=== PATIENT | female | born 1935 | race Caucasian/White ===

== ENCOUNTER → 2019-06-03 | Outpatient (CLI) | payer MEDICARE, BC ==
[2019-06-03 11:07] LABS: BACTERIA,URINE LARGE /HPF; BILIRUBIN,URINE NEGATIVE (NEGATIVE); CLARITY,URINE CLOUDY; COLOR,URINE YELLOW; GLUCOSE, URINE (UA) NEGATIVE (NEGATIVE); KETONES,URINE NEGATIVE (NEGATIVE); LEUKOCYTE ESTERASE ,URINE 2+ (NEGATIVE); NITRITE,URINE NEGATIVE (NEGATIVE); PROTEIN,URINE NEGATIVE (NEGATIVE); UROBILINOGEN,URINE 0.2 MG/DL (NORMAL); WBC,URINE >100 /HPF
[2019-06-03 11:08] LABS: AMORPHOUS SEDIMENT,UR LARGE AMOR URATES /LPF; CALCIUM OXALATE CRYSTALS,UR FEW /LPF
== END ==
LOC: LAB FS 09:20
PROVIDERS: ATTEND Family Medicine
DX: N39.0 Urinary tract infection, site not specified (principal)
CPT/HCPCS: 81000; 87077; 87088

== ENCOUNTER 2020-05-11 16:27 | Emergency (ER) | payer MEDICARE ==
--- NOTE | 2020-05-11 16:35 | ED Lower Extremity ---
General Chief Complaint: Trauma-Non Activation Stated Complaint: FALL Source: patient, EMS Exam Limitations: other (dementia) History of Present Illness Date Seen by Provider: May 11, 2020 Time Seen by Provider: 16:33 Initial Comments 84-year-old female brought in for evaluation following an episode in which she slid out of her wheelchair. Patient initially was complaining of buttock pain and hip pain and left arm pain. Upon arrival to the ER she is not complaining of any pain. Patient did not hit her head. She has no acute mental status changes she has no other symptoms. Allergies and Home Medications Patient Home Medication List Home Medication List Reviewed: Yes Review of Systems Constitutional: no symptoms reported EENTM: no symptoms reported Respiratory: no symptoms reported Cardiovascular: no symptoms reported Gastrointestinal: no symptoms reported Genitourinary: no symptoms reported Musculoskeletal: see HPI Skin: no symptoms reported Psychiatric/Neurological: No Symptoms Reported Past Akmhrou-Nruqwr-Oqvbwa Hx Past Med/Social Hx: Reviewed Nursing Past Med/Soc Hx Physical Exam Vital Signs Vital Signs - First Documented 05/11/20 16:34 Temp 36.8 Pulse 56 Resp 16 B/P (MAP) 143/64 (90) Pulse Ox 94 O2 Delivery Room Air Capillary Refill : Height, Weight, BMI Height: '" Weight: lbs. oz. kg; BMI Method: General Appearance: WD/WN, no apparent distress HEENT: PERRL/EOMI Neck: non-tender, full range of motion Cardiovascular: normal peripheral pulses, regular rate, rhythm Respiratory: lungs clear, normal breath sounds Gastrointestinal: non tender, soft Hips: bilateral hip non-tender Legs: bilateral leg non-tender Knees: bilateral knee non-tender Ankles: bilateral ankle non-tender Neurologic/Psychiatric: alert, other (baseline mood and affect, pleasant) Skin: normal color, warm/dry Progress/Results/Core Measures Results/Orders My Orders Orders - KERR,BILL L DO Pelvis/Noemi Hips 2 View (05/11/20 16:35) Vital Signs/I&O 05/11/20 16:34 Temp 36.8 Pulse 56 Resp 16 B/P (MAP) 143/64 (90) Pulse Ox 94 O2 Delivery Room Air Diagnostic Imaging Diagonstic Imaging: Xray Plain Films/CT/US/NM/MRI: pelvis Comments [facility]. [place], [place] NAME: WAI GARCIA [facility] REC#: [id number] PT STATUS: REG ER : 1935 PHYSICIAN: BILL KERR DO ADMIT DATE: 05/11/20/ER FS Signed Date of Exam:05/11/20 PELVIS/NOEMI HIPS 2 VIEW CLINICAL HISTORY: Fall. Bilateral hip pain. COMPARISON: None. TECHNIQUE: Five views of the pelvis and bilateral hips. FINDINGS: There is no acute fracture or dislocation of the pelvis and bilateral hips. Alignment is anatomic. Degenerative changes are noted in the bilateral hips with marginal osteophytes and joint space narrowing, left greater than right. The bilateral SI joints demonstrate normal alignment. The pubic symphysis is intact. IMPRESSION: No acute displaced fracture in the pelvis and bilateral hips. Reviewed: Reviewed by Me, Reviewed/Discussed Departure Impression Primary Impression: Fall involving wheelchair as cause of accidental injury at residential institution as place of occurrence Qualified Codes: W05.0XXA - Fall from non-moving wheelchair, initial encounter; Y92.10 - Unspecified residential institution as the place of occurrence of the external cause Disposition: HOME, SELF-CARE Condition: Stable Departure-Patient Inst. Referrals: WANDY RAY MD (PCP/Family) Primary Care Physician Patient Instructions: Contusion (DC) BILL KERR DO May 11, 2020 16:35
--- NOTE | 2020-05-11 17:15 | Diagnostic Imaging Report ---
CLINICAL HISTORY: Fall. Bilateral hip pain. COMPARISON: None. TECHNIQUE: Five views of the pelvis and bilateral hips. FINDINGS: There is no acute fracture or dislocation of the pelvis and bilateral hips. Alignment is anatomic. Degenerative changes are noted in the bilateral hips with marginal osteophytes and joint space narrowing, left greater than right. The bilateral SI joints demonstrate normal alignment. The pubic symphysis is intact. IMPRESSION: No acute displaced fracture in the pelvis and bilateral hips. Dictated by: Dictated on workstation # [id number]
[2020-05-11 18:17] VITALS: BP 138/75
== END 2020-05-11 18:24 | disposition home or self-care (01) ==
LOC: EDUNIT# 16:27 → ER FS 16:28
DX: M25.551 Pain in right hip (principal); M25.552 Pain in left hip; W05.0XXA Fall from non-moving wheelchair, initial encounter; Y92.10 Unspecified residential institution as the place of occurrence of the external cause
CPT/HCPCS: 73521

== ENCOUNTER → 2020-06-15 | Outpatient (CLI) | payer MEDICARE ==
[2020-06-15 20:03] LABS: CLARITY,URINE CLOUDY; COLOR,URINE DARK YELLOW
[2020-06-15 20:04] LABS: BACTERIA,URINE LARGE /HPF; BILIRUBIN,URINE 1+ (NEGATIVE); GLUCOSE, URINE (UA) NEGATIVE (NEGATIVE); KETONES,URINE TRACE (NEGATIVE); LEUKOCYTE ESTERASE ,URINE 2+ (NEGATIVE); NITRITE,URINE NEGATIVE (NEGATIVE); PROTEIN,URINE NEGATIVE (NEGATIVE); WBC,URINE TNTC /HPF
== END ==
LOC: LAB FS 18:43
PROVIDERS: ATTEND Family Medicine
DX: Z01.89 Encounter for other specified special examinations (principal)
CPT/HCPCS: 81000; 87077; 87088

== ENCOUNTER 2020-07-12 07:16 | Emergency (ER) | payer MEDICARE ==
[~2020-07-12] VITALS: Ht 170.1 cm; Wt 93.6 kg
[2020-07-12] MEDS ORDERED: NS IV 500 ML 500 ML IV STA (07:21)
--- NOTE | 2020-07-12 07:25 | ED General ---
General Stated Complaint: FALL; ABD PAIN Source of Information: Patient, EMS, EMS Notes Reviewed, RN/MD, RN Notes Reviewed Exam Limitations: No Limitations History of Present Illness Date Seen by Provider: Jul 12, 2020 Time Seen by Provider: 07:15 Initial Comments This patient is an 84-year-old female presents to the emergency department from local correction after a fall out of bed. Patient has a history of falling out of the bed. Patient apparently was found on the floor beside her bed and he thought that that she was unresponsive however could possibly just been asleep. Patient has no complaints of pain but did have nausea and did vomit on the way to the emergency department. Patient is awake and alert and appears to be at her mental baseline according to staff and EMS. We will do medical evaluation treatment is needed. Patient initially did complain of left arm pain however moves left upper extremity without difficulty and has no areas of tenderness. Timing/Duration: 1 Hour Severity: Mild Associated Systoms: Denies Symptoms Allergies and Home Medications Allergies Coded Allergies: sulfamethoxazole (Verified Allergy, Unknown, 05/11/20) trimethoprim (Verified Allergy, Unknown, 05/11/20) Patient Home Medication List Home Medication List Reviewed: Yes Review of Systems Review of Systems Constitutional: No no symptoms reported, No see HPI, No chills, No diaphoresis, No dizziness, No fever, No malaise, No weakness, No weight gain, No weight loss, No other EENTM: No see HPI, No no symptoms reported, No ear discharge, No hearing loss, No ear pain, No blurred vision, No double vision, No eye pain, No tearing, No vision loss, No dental problems, No hoarseness, No mouth pain, No mouth swelling, No epistaxis, No nose congestion, No nose pain, No throat pain, No throat swelling, No other Respiratory: No no symptoms reported, No see HPI, No cough, No dyspnea on exertion, No hemoptysis, No orthopnea, No phlegm, No short of breath, No stridor, No wheezing, No other Cardiovascular: No no symptoms reported, No see HPI, No chest pain, No edema, No Hx of Intervention, No palpitations, No syncope, No vascular heart diseas, No other Gastrointestinal: No RUQ, No LUQ, No RLQ, No LLQ, No no symptoms reported, No see HPI, No abdominal pain, No constipation, No diarrhea, No dysphagia, No hematemesis, No heartburn, No jaundice, No loss of appetite, No melena; nausea, vomiting; No other Genitourinary: No no symptoms reported, No see HPI, No decreased output, No discharge, No dysuria, No frequency, No hematuria, No hesitancy, No incontinence, No nocturia, No pain, No other Musculoskeletal: No no symptoms reported, No see HPI, No back pain, No gout, No joint pain, No joint swelling, No muscle pain, No muscle stiffness, No muscle cramps, No muscle twitching, No muscle weakness, No neck pain, No other Skin: No no symptoms reported, No see HPI, No change in color, No change in hair/nails, No dryness, No hx of skin cancer, No lesions, No lumps, No pruritus, No rash, No other All Other Systems Reviewed Negative Unless Noted: Yes Past Pmdmmqz-Nsfvar-Vvgupx Hx Patient Social History 2nd Hand Smoke Exposure: No Past Medical History Cardiac: Yes High Cholesterol Neurological: Yes Dementia Genitourinary: Yes (overactive bladder) Musculoskeletal: Yes (polymyalgia rheumatica) HEENT: Yes Glaucoma Physical Exam Vital Signs Vital Signs - First Documented 07/12/20 07:20 Temp 36.2 Pulse 55 Resp 15 B/P (MAP) 126/75 (92) Pulse Ox 94 O2 Delivery Room Air Capillary Refill : Height, Weight, BMI Height: '" Weight: lbs. oz. kg; BMI Method: General Appearance: No Apparent Distress, WD/WN HEENT: PERRL/EOMI, TMs Normal, Normal ENT Inspection, Pharynx Normal Neck: Full Range of Motion, Normal Inspection, Non Tender, Supple Respiratory: Chest Non Tender, Lungs Clear, Normal Breath Sounds, No Accessory Muscle Use, No Respiratory Distress Cardiovascular: Regular Rate, Rhythm, No Edema, No Gallop, No JVD, No Murmur, Normal Peripheral Pulses Gastrointestinal: Normal Bowel Sounds, No Organomegaly, No Pulsatile Mass, Non Tender, Soft Extremity: Normal Capillary Refill, Normal Inspection, Normal Range of Motion, Non Tender, No Calf Tenderness, No Pedal Edema Neurologic/Psychiatric: Alert, Oriented x3, No Motor/Sensory Deficits, Normal Mood/Affect Skin: Normal Color, Warm/Dry Progress/Results/Core Measures Suspected Sepsis SIRS Temperature: Pulse: Respiratory Rate: Laboratory Tests 07/12/20 07:25: White Blood Count 7.7 Blood Pressure / Mean: Laboratory Tests 07/12/20 07:25: Creatinine 0.69, Platelet Count 219, Total Bilirubin 0.6 Results/Orders Lab Results Laboratory Tests Test 07/12/20 07:25 07/12/20 07:30 Range/Units White Blood Count 7.7 4.3-11.0 10^3/uL Red Blood Count 3.87 L 4.35-5.85 10^6/uL Hemoglobin 13.3 11.5-16.0 G/DL Hematocrit 41 35-52 % Mean Corpuscular Volume 105 H 80-99 FL Mean Corpuscular Hemoglobin 34 25-34 PG Mean Corpuscular Hemoglobin Concent 33 32-36 G/DL Red Cell Distribution Width 12.4 10.0-14.5 % Platelet Count 219 130-400 10^3/uL Mean Platelet Volume 9.8 7.4-10.4 FL Neutrophils (%) (Auto) 65 42-75 % Lymphocytes (%) (Auto) 25 12-44 % Monocytes (%) (Auto) 6 0-12 % Eosinophils (%) (Auto) 4 0-10 % Basophils (%) (Auto) 1 0-10 % Neutrophils # (Auto) 5.0 1.8-7.8 X 10^3 Lymphocytes # (Auto) 1.9 1.0-4.0 X 10^3 Monocytes # (Auto) 0.5 0.0-1.0 X 10^3 Eosinophils # (Auto) 0.3 0.0-0.3 10^3/uL Basophils # (Auto) 0.0 0.0-0.1 10^3/uL Sodium Level 139 135-145 MMOL/L Potassium Level 3.5 L 3.6-5.0 MMOL/L Chloride Level 102 98-107 MMOL/L Carbon Dioxide Level 25 21-32 MMOL/L Anion Gap 12 5-14 MMOL/L Blood Urea Nitrogen 6 L 7-18 MG/DL Creatinine 0.69 0.60-1.30 MG/DL Estimat Glomerular Filtration Rate > 60 BUN/Creatinine Ratio 9 Glucose Level 120 H 70-105 MG/DL Calcium Level 9.1 8.5-10.1 MG/DL Corrected Calcium 9.5 8.5-10.1 MG/DL Total Bilirubin 0.6 0.1-1.0 MG/DL Aspartate Amino Transf (AST/SGOT) 5 5-34 U/L Alanine Aminotransferase (ALT/SGPT) 5 0-55 U/L Alkaline Phosphatase 88 40-136 U/L Troponin I < 0.30 <0.30 NG/ML Pro-B-Type Natriuretic Peptide 290.0 H <75.0 PG/ML Total Protein 7.1 6.4-8.2 GM/DL Albumin 3.5 3.2-4.5 GM/DL Urine Color YELLOW Urine Clarity CLEAR Urine pH 6.5 5-9 Urine Specific [place] 1.010 L 1.016-1.022 Urine Protein NEGATIVE NEGATIVE Urine Glucose (UA) NEGATIVE NEGATIVE Urine Ketones NEGATIVE NEGATIVE Urine Nitrite NEGATIVE NEGATIVE Urine Bilirubin NEGATIVE NEGATIVE Urine Urobilinogen 0.2 < = 1.0 MG/DL Urine Leukocyte Esterase NEGATIVE NEGATIVE Urine RBC (Auto) NEGATIVE NEGATIVE Urine RBC NONE /HPF Urine WBC NONE /HPF Urine Squamous Epithelial Cells 0-2 /HPF Urine Crystals NONE /LPF Urine Bacteria NONE /HPF Urine Casts NONE /LPF Urine Mucus NEGATIVE /LPF Urine Culture Indicated NO My Orders Orders - TYE LACY MD Cbc With Automated Diff (07/12/20 07:21) Comprehensive Metabolic Panel (07/12/20 07:21) Probnp Fs (07/12/20 07:21) Troponin I Fs (07/12/20 07:21) Ekg Tracing (07/12/20 07:21) Chest 1 View Ap/Pa Only (07/12/20 07:21) Ns Iv 500 Ml (Sodium Chloride 0.9%) (07/12/20 07:21) Ondansetron Injection (Zofran Injectio (07/12/20 07:30) Ed Iv/Invasive Line Start (07/12/20 07:21) Ct Head Wo (07/12/20 07:21) Urinalysis (07/12/20 07:50) Hip (Single View) Right (07/12/20 07:52) Medications Given in ED Current Medications Medications Dose Ordered Sig/Malika Route Start Time Stop Time Status Last Admin Dose Admin Ondansetron HCl 4 mg ONCE ONCE IVP 07/12/20 07:30 07/12/20 07:31 DC 07/12/20 08:06 4 MG Vital Signs/I&O 07/12/20 07:20 Temp 36.2 Pulse 55 Resp 15 B/P (MAP) 126/75 (92) Pulse Ox 94 O2 Delivery Room Air Capillary Refill : Progress Note : Time: 08:32 Progress Note Negative evaluation in the emergency department for any acute findings. Patient appears to be stable and her chronic conditions. Will be discharged back to the nursing facility. Continue all home medications ECG Initial ECG Impression Date: Jul 12, 2020 Initial ECG Impression Time: 08:07 Initial ECG Rate: 52 Initial ECG Rhythm: S.Darron Initial ECG Intervals: Normal Initial ECG Impression: Nonspecific Changes Comment Sinus rhythm heart rate 52 borderline left axis deviation and nonspecific ST changes Departure Impression Primary Impression: Fall Additional Impression: Nausea Disposition: 03 XFER SNF Condition: Stable Departure-Patient Inst. Decision time for Depature: 08:33 Referrals: WANDY RAY MD (PCP/Family) Primary Care Physician Patient Instructions: Nausea and Vomiting, Adult (DC) Add. Discharge Instructions: Continue fall precautions. Continue all home medications. Follow-up with PCP in 2-3 days TYE LACY MD Jul 12, 2020 07:25
[2020-07-12] MEDS ORDERED: ONDANSETRON 4 MG/2 ML (SDV) Z0FRAN IVP ONE (07:30)
[2020-07-12 07:37] LABS: HEMATOCRIT 41 % (35-52); HEMOGLOBIN 13.3 G/DL (11.5-16.0); MEAN CORPUSCULAR HEMOGLOBIN 34 PG (25-34); MEAN CORPUSCULAR VOLUME 105 FL (80-99); WHITE BLOOD COUNT 7.7 10^3/uL (4.3-11.0)
[2020-07-12 07:38] LABS: BASOPHILS % (AUTO) 1 % (0-10); EOSINOPHILS # (AUTO) 0.3 10^3/uL (0.0-0.3); EOSINOPHILS % (AUTO) 4 % (0-10); LYMPHOCYTES # (AUTO) 1.9 X 10^3 (1.0-4.0); LYMPHOCYTES % (AUTO) 25 % (12-44); MEAN CORPUSCULAR HGB CONC 33 G/DL (32-36); MEAN PLATELET VOLUME 9.8 FL (7.4-10.4); MONOCYTES # (AUTO) 0.5 X 10^3 (0.0-1.0); MONOCYTES % (AUTO) 6 % (0-12); NEUTROPHILS % (AUTO) 65 % (42-75); PLATELET COUNT 219 10^3/uL (130-400)
[2020-07-12 08:03] LABS: ALANINE AMINOTRANSFERASE 5 U/L (0-55); ALBUMIN 3.5 GM/DL (3.2-4.5); ALKALINE PHOSPHATASE 88 U/L (40-136); BILIRUBIN,TOTAL 0.6 MG/DL (0.1-1.0); BUN/CREATININE RATIO 9; CALCIUM 9.1 MG/DL (8.5-10.1); CARBON DIOXIDE 25 MMOL/L (21-32); CHLORIDE 102 MMOL/L (98-107); CREATININE SERUM 0.69 MG/DL (0.60-1.30); GFR ESTIMATED > 60; GLUCOSE 120 MG/DL (70-105); POTASSIUM 3.5 MMOL/L (3.6-5.0); SODIUM 139 MMOL/L (135-145); TOTAL PROTEIN 7.1 GM/DL (6.4-8.2)
--- NOTE | 2020-07-12 08:05 | NUR ---
Returned to room from radiology and CT. Pt is arousable to name but resting with eyes closed.
[2020-07-12 08:06] LABS: BILIRUBIN,URINE NEGATIVE (NEGATIVE); CLARITY,URINE CLEAR; COLOR,URINE YELLOW; GLUCOSE, URINE (UA) NEGATIVE (NEGATIVE); KETONES,URINE NEGATIVE (NEGATIVE); LEUKOCYTE ESTERASE ,URINE NEGATIVE (NEGATIVE); NITRITE,URINE NEGATIVE (NEGATIVE); PH,URINE 6.5 (5-9); PROTEIN,URINE NEGATIVE (NEGATIVE); SQUAMOUS EPITHELIAL CELL,UR 0-2 /HPF
--- NOTE | 2020-07-12 08:20 | Diagnostic Imaging Report ---
Indication: Right hip pain. AP, and oblique views of the right hip are obtained. There are degenerative changes of the right hip joint with joint space narrowing osteophyte formation. There is no acute fracture visualized. Impression: Degenerative changes of right hip with no acute fracture visualized. Dictated by: Dictated on workstation # [id number]
--- NOTE | 2020-07-12 08:20 | Diagnostic Imaging Report ---
PROCEDURE: CT head without contrast. TECHNIQUE: Multiple contiguous axial images were obtained through the brain without the use of intravenous contrast. Auto Exposure Controls were utilized during the CT exam to meet ALARA standards for radiation dose reduction. INDICATION: Fall. No prior studies are available for comparison. Ventricles are prominent consistent with cerebral atrophy. Moderate periventricular hypodensity is noted consistent with chronic microvascular ischemia. No midline shift is identified. No acute intraaxial or extraaxial hemorrhage is detected. The cisterns are patent. The visualized paranasal sinuses are clear. IMPRESSION: Chronic and senescent changes. No acute intracranial process is detected. Dictated by: Dictated on workstation # [id number]
--- NOTE | 2020-07-12 08:26 | Diagnostic Imaging Report ---
HISTORY: Fall TECHNIQUE: Frontal view of the chest. COMPARISON: None FINDINGS: Lung volumes are normal. There is cardiomegaly and mildly prominent interstitial markings. No airspace consolidation is seen. No pleural effusion or pneumothorax is seen. Prominence of the mediastinum may be due to technique. IMPRESSION: 1. Mild cardiomegaly, may be accentuated by technique. Interstitial markings are mildly prominent, may be due to mild interstitial edema. Dictated by: Dictated on workstation # [id number]
--- NOTE | 2020-07-12 08:33 | NUR ---
Physician determination for plan for discharge.
--- NOTE | 2020-07-12 09:10 | NUR ---
Call [facility] to Olga Lidia, pt nurse, and report given and request transportation. Pt is a stand to sit transfer 1-2 staff requirement.
--- NOTE | 2020-07-12 09:55 | NUR ---
[facility] arriving, returned to go get pt's WC for transfer.
[2020-07-12 10:05] VITALS: BP 125/71
--- NOTE | 2020-07-12 10:05 | NUR ---
Patient discharged at this time, alert and talking. Pleasantly confused at times. Transferred to with 2 staff assist stand and sit without incident. Staff returned bedding from in a bag. Copies of lab and radiology studies.
== END 2020-07-12 10:05 ==
LOC: EDUNIT# 07:16 → ER FS 07:18
DX: R11.2 Nausea with vomiting, unspecified (principal); Z88.2 Allergy status to sulfonamides; Z88.1 Allergy status to other antibiotic agents; W06.XXXA Fall from bed, initial encounter
CPT/HCPCS: 36415; 51701; 70450; 71045; 73501; 80053; 81000; 83880; 84484; 85025; 93005

== ENCOUNTER → 2020-07-26 | Outpatient (CLI) | payer MEDICARE ==
[2020-07-26 11:26] LABS: CLARITY,URINE CLOUDY; COLOR,URINE DARK YELLOW; GLUCOSE, URINE (UA) NEGATIVE (NEGATIVE); PROTEIN,URINE 1+ (NEGATIVE)
[2020-07-26 11:27] LABS: BACTERIA,URINE LARGE /HPF; BILIRUBIN,URINE NEGATIVE (NEGATIVE); KETONES,URINE NEGATIVE (NEGATIVE); LEUKOCYTE ESTERASE ,URINE 2+ (NEGATIVE); NITRITE,URINE NEGATIVE (NEGATIVE); WBC,URINE >100 /HPF
== END ==
LOC: LAB FS 11:01
PROVIDERS: ATTEND Family Medicine
DX: N39.0 Urinary tract infection, site not specified (principal)
CPT/HCPCS: 81000; 87077; 87088; 87186

== ENCOUNTER 2020-08-06 10:51 | Emergency (ER) | payer MEDICARE ==
[~2020-08-06] VITALS: Ht 170 cm; Wt 90.0 kg
--- NOTE | 2020-08-06 11:12 | ED General ---
General Chief Complaint: Neuro-Stroke Like Symptoms Stated Complaint: STROKE-LIKE SYMPTOMS Source of Information: Patient History of Present Illness Date Seen by Provider: Aug 06, 2020 Time Seen by Provider: 10:55 Initial Comments Patient is an 84-year-old female intermediate patient who presents with expressive aphasia and right-sided facial droop. Last known normal was 3 hours prior to ED arrival. No extremity weakness or loss of sensation. History of polymyalgia rheumatica. No headache. Patient is not on anticoagulation therapy. History is limited by the patient's presentation and clinical condition. Timing/Duration: 1-3 Hours Severity: Moderate Modifying Factors: improves with Other Associated Systoms: Other Allergies and Home Medications Allergies Coded Allergies: sulfamethoxazole (Verified Allergy, Unknown, 05/11/20) trimethoprim (Verified Allergy, Unknown, 05/11/20) Patient Home Medication List Home Medication List Reviewed: Yes Review of Systems Review of Systems Constitutional: see HPI EENTM: see HPI Respiratory: see HPI Cardiovascular: see HPI Gastrointestinal: see HPI Musculoskeletal: see HPI Skin: see HPI Psychiatric/Neurological: See HPI Hematologic/Lymphatic: See HPI Immunological/Allergic: see HPI All Other Systems Reviewed Negative Unless Noted: No Past Tudkrmr-Ciesxr-Vmjnor Hx Past Med/Social Hx: Reviewed Nursing Past Med/Soc Hx Patient Social History 2nd Hand Smoke Exposure: No Recent Hopitalizations: No Seasonal Allergies Seasonal Allergies: No Past Medical History Surgeries: Yes (Colonoscopy, Hemorrhoidectomy, ) Hysterectomy, Oophorectomy Respiratory: No (Tobaccoism: prior hx smoked 50 yrs) Cardiac: Yes (Postural hypotension) High Cholesterol, Hypertension Neurological: Yes Dementia Genitourinary: Yes (overactive bladder) UTI-Chronic Gastrointestinal: No (General muscle weakness, ) Musculoskeletal: Yes (polymyalgia rheumatica) Endocrine: Yes (elevated BMI) Hypothyroidsim HEENT: Yes Glaucoma Cancer: Yes (Squamous cell CA and Basal cell ) Skin Psychosocial: Yes Depression Integumentary: No Blood Disorders: No Physical Exam Vital Signs Vital Signs - First Documented 08/06/20 10:53 Temp 36.9 Pulse 60 Resp 14 B/P (MAP) 126/60 (82) Pulse Ox 95 O2 Delivery Room Air Capillary Refill : Height, Weight, BMI Height: '" Weight: lbs. oz. kg; 32.00 BMI Method: General Appearance: No Apparent Distress, WD/WN Eyes: Bilateral Eye Normal Inspection, Bilateral Eye PERRL, Bilateral Eye EOMI HEENT: PERRL/EOMI, Normal ENT Inspection, Pharynx Normal, Other (maintaining airway, swallowing secretions.) Neck: Full Range of Motion, Non Tender, Supple Respiratory: Lungs Clear Cardiovascular: Regular Rate, Rhythm Gastrointestinal: Non Tender, Soft Extremity: Normal Capillary Refill, Normal Inspection, No Calf Tenderness Neurologic/Psychiatric: Alert, Oriented x3, educational psychology professor II-XII Norm as Tested, Abnormal educational psychology professor II-XII, Other (expressive aphasia, right facial droop. Cranial nerves otherwise intact. No extremity weakness or loss of sensation.) Focused Exam Sepsis Stage: Ruled Out Progress/Results/Core Measures Suspected Sepsis SIRS Temperature: Pulse: Respiratory Rate: Laboratory Tests 08/06/20 11:00: White Blood Count 10.6 Blood Pressure / Mean: Laboratory Tests 08/06/20 11:00: Creatinine 0.82, INR Comment 1.0, Platelet Count 241, Total Bilirubin 0.5 Results/Orders Lab Results Laboratory Tests Test 08/06/20 11:00 08/06/20 11:13 08/06/20 11:28 Range/Units White Blood Count 10.6 4.3-11.0 10^3/uL Red Blood Count 3.70 L 4.35-5.85 10^6/uL Hemoglobin 12.6 11.5-16.0 G/DL Hematocrit 39 35-52 % Mean Corpuscular Volume 104 H 80-99 FL Mean Corpuscular Hemoglobin 34 25-34 PG Mean Corpuscular Hemoglobin Concent 33 32-36 G/DL Red Cell Distribution Width 12.5 10.0-14.5 % Platelet Count 241 130-400 10^3/uL Mean Platelet Volume 10.0 7.4-10.4 FL Immature Granulocyte % (Auto) 0 % Neutrophils (%) (Auto) 73 42-75 % Lymphocytes (%) (Auto) 18 12-44 % Monocytes (%) (Auto) 5 0-12 % Eosinophils (%) (Auto) 4 0-10 % Basophils (%) (Auto) 0 0-10 % Neutrophils # (Auto) 7.7 1.8-7.8 X 10^3 Lymphocytes # (Auto) 1.9 1.0-4.0 X 10^3 Monocytes # (Auto) 0.5 0.0-1.0 X 10^3 Eosinophils # (Auto) 0.4 H 0.0-0.3 10^3/uL Basophils # (Auto) 0.0 0.0-0.1 10^3/uL Immature Granulocyte # (Auto) 0.0 0.0-0.1 10^3/uL Prothrombin Time 13.6 12.2-14.7 SEC INR Comment 1.0 0.8-1.4 Activated Partial Thromboplast Time 31 24-35 SEC Sodium Level 140 135-145 MMOL/L Potassium Level 3.9 3.6-5.0 MMOL/L Chloride Level 102 98-107 MMOL/L Carbon Dioxide Level 29 21-32 MMOL/L Anion Gap 9 5-14 MMOL/L Blood Urea Nitrogen 9 7-18 MG/DL Creatinine 0.82 0.60-1.30 MG/DL Estimat Glomerular Filtration Rate > 60 BUN/Creatinine Ratio 11 Glucose Level 106 H 70-105 MG/DL Calcium Level 8.9 8.5-10.1 MG/DL Corrected Calcium 9.5 8.5-10.1 MG/DL Magnesium Level 1.9 1.6-2.4 MG/DL Total Bilirubin 0.5 0.1-1.0 MG/DL Aspartate Amino Transf (AST/SGOT) 7 5-34 U/L Alanine Aminotransferase (ALT/SGPT) 5 0-55 U/L Alkaline Phosphatase 87 40-136 U/L Troponin I < 0.30 <0.30 NG/ML Pro-B-Type Natriuretic Peptide 209.1 H <75.0 PG/ML Total Protein 6.7 6.4-8.2 GM/DL Albumin 3.3 3.2-4.5 GM/DL Urine Color YELLOW Urine Clarity SL CLOUDY Urine pH 6.5 5-9 Urine Specific [place] 1.020 1.016-1.022 Urine Protein NEGATIVE NEGATIVE Urine Glucose (UA) NEGATIVE NEGATIVE Urine Ketones NEGATIVE NEGATIVE Urine Nitrite NEGATIVE NEGATIVE Urine Bilirubin NEGATIVE NEGATIVE Urine Urobilinogen 0.2 < = 1.0 MG/DL Urine Leukocyte Esterase 2+ H NEGATIVE Urine RBC (Auto) NEGATIVE NEGATIVE Urine RBC NONE /HPF Urine WBC 5-10 H /HPF Urine Crystals NONE /LPF Urine Bacteria FEW H /HPF Urine Casts NONE /LPF Urine Mucus NEGATIVE /LPF Urine Culture Indicated YES Glucometer 86 70-110 MG/DL My Orders Orders - JULIUS MINER DO Ct Head Wo (08/06/20 10:57) Cbc With Automated Diff (08/06/20 11:04) Comprehensive Metabolic Panel (08/06/20 11:04) Protime With Inr (08/06/20 11:04) Ekg Tracing (08/06/20 11:04) Troponin I Fs (08/06/20 11:04) Probnp Fs (08/06/20 11:04) Accucheck Fasting (08/06/20 11:04) Ua Culture If Indicated (08/06/20 11:04) Magnesium (08/06/20 11:04) Thyroid Stimulating Hormone (08/06/20 11:04) Urine Culture (08/06/20 11:13) Ns Iv 1000 Ml (Sodium Chloride 0.9%) (08/06/20 11:45) Ceftriaxone For Iv Use (Rocephin For I (08/06/20 11:45) Ct Angio Head/Neck (08/06/20 11:45) Alteplase (Activase) (Activase Injection (08/06/20 12:00) Post Thrombolytic Adminstratio (08/06/20 11:49) Partial Thromboplastin Time (08/06/20 11:54) Iohexol Injection (Omnipaque 350 Mg/Ml 1 (08/06/20 12:15) Received Contrast (Hold Metformin- Contr (08/06/20 12:15) Sodium Chloride Flush (Catheter Flush Sy (08/06/20 12:15) Ns (Ivpb) (Sodium Chloride 0.9% Ivpb Bag (08/06/20 12:15) Medications Given in ED Current Medications Medications Dose Ordered Sig/Malika Route Start Time Stop Time Status Last Admin Dose Admin Alteplase, Recombinant (0.9mg/ kg-max 90mg) with ... ONCE ONCE IV 08/06/20 12:00 08/06/20 12:01 DC 08/06/20 12:18 72.9 MG Ceftriaxone Sodium 1000 mg/ Sterile Water 10 ml @ 200 mls/hr ONCE ONCE IV 08/06/20 11:45 08/06/20 11:47 DC 08/06/20 12:23 200 MLS/HR Vital Signs/I&O 08/06/20 10:53 Temp 36.9 Pulse 60 Resp 14 B/P (MAP) 126/60 (82) Pulse Ox 95 O2 Delivery Room Air Capillary Refill : Departure Communication (Admissions) Patient with NIH stroke score of 21 (unable to follow commands). CT head nonacute. Patient with expressive aphasia without improvement in the ED. initial delay in administering TPA due to concern mixed presentation. Patient with turbid urine and concern for coexisting encephalopathy. Case discussed with on- call neurologist at [facility]. Recommendations are to give TPA and obtained CTA imaging. Dr. Drummond accepts to [facility] ICU Impression Primary Impression: Stroke Disposition: XFER SHT-TRM HOSP Condition: Stable Admissions Decision to Admit Reason: Admit from ER (General) Transfer Transfer Reason: Exceeds level of care Departure-Patient Inst. Referrals: WANDY RAY MD (PCP/Family) Primary Care Physician JULIUS MINER DO Aug 06, 2020 11:12
[2020-08-06 11:20] LABS: HEMATOCRIT 39 % (35-52); HEMOGLOBIN 12.6 G/DL (11.5-16.0); MEAN CORPUSCULAR HEMOGLOBIN 34 PG (25-34); MEAN CORPUSCULAR HGB CONC 33 G/DL (32-36); MEAN CORPUSCULAR VOLUME 104 FL (80-99); PLATELET COUNT 241 10^3/uL (130-400); WHITE BLOOD COUNT 10.6 10^3/uL (4.3-11.0)
[2020-08-06 11:21] LABS: BASOPHILS % (AUTO) 0 % (0-10); EOSINOPHILS # (AUTO) 0.4 10^3/uL (0.0-0.3); EOSINOPHILS % (AUTO) 4 % (0-10); LYMPHOCYTES # (AUTO) 1.9 X 10^3 (1.0-4.0); LYMPHOCYTES % (AUTO) 18 % (12-44); MONOCYTES # (AUTO) 0.5 X 10^3 (0.0-1.0); MONOCYTES % (AUTO) 5 % (0-12); NEUTROPHILS # (AUTO) 7.7 X 10^3 (1.8-7.8); NEUTROPHILS % (AUTO) 73 % (42-75)
[2020-08-06 11:28] LABS: BACTERIA,URINE FEW /HPF; BILIRUBIN,URINE NEGATIVE (NEGATIVE); CLARITY,URINE SL CLOUDY; COLOR,URINE YELLOW; GLUCOSE, URINE (UA) NEGATIVE (NEGATIVE); KETONES,URINE NEGATIVE (NEGATIVE); LEUKOCYTE ESTERASE ,URINE 2+ (NEGATIVE); NITRITE,URINE NEGATIVE (NEGATIVE); PH,URINE 6.5 (5-9); PROTEIN,URINE NEGATIVE (NEGATIVE)
--- NOTE | 2020-08-06 11:36 | Diagnostic Imaging Report ---
PROCEDURE: CT head without contrast. TECHNIQUE: Multiple contiguous axial images were obtained through the brain without the use of intravenous contrast. Auto Exposure Controls were utilized during the CT exam to meet ALARA standards for radiation dose reduction. INDICATION: "Stroke like symptoms". Exam compared 09/11/2019. FINDINGS: Atrophy and ventriculomegaly unchanged. Severe subcortical and periventricular white matter hypodensity symmetric and unchanged. No sulcal effacement. Sensitivity limited by substantial degrees of motion artifact. There was no appreciable hemorrhage, shift or herniation. The basilar cisterns are patent. The orbits, sinuses and calvarium showed no gross pathology. IMPRESSION: Atrophy, ventriculomegaly and extensive white matter disease stable from prior. No hemorrhage or new abnormality apparent at this motion degraded exam. Dictated by: Dictated on workstation # [id number]
[2020-08-06] MEDS ORDERED: cefTRIAXone FOR IV USE 1,000 MG in WATER (STERILE) FOR INJECTION 10 ML IV ONE (11:45)
[2020-08-06] MEDS ORDERED: NS IV 1000 ML 1,000 ML IV SCH (11:45)
[2020-08-06 11:47] LABS: BUN/CREATININE RATIO 11; CARBON DIOXIDE 29 MMOL/L (21-32); CHLORIDE 102 MMOL/L (98-107); CREATININE SERUM 0.82 MG/DL (0.60-1.30); GFR ESTIMATED > 60; POTASSIUM 3.9 MMOL/L (3.6-5.0); SODIUM 140 MMOL/L (135-145)
[2020-08-06 11:48] LABS: ALANINE AMINOTRANSFERASE 5 U/L (0-55); ALBUMIN 3.3 GM/DL (3.2-4.5); ALKALINE PHOSPHATASE 87 U/L (40-136); BILIRUBIN,TOTAL 0.5 MG/DL (0.1-1.0); CALCIUM 8.9 MG/DL (8.5-10.1); GLUCOSE 106 MG/DL (70-105); MAGNESIUM 1.9 MG/DL (1.6-2.4); TOTAL PROTEIN 6.7 GM/DL (6.4-8.2)
[2020-08-06 11:49] LABS: PROTHROMBIN TIME PATIENT 13.6 SEC (12.2-14.7)
[2020-08-06] MEDS ORDERED: ALTEPLASE 100 MG/VIAL (ACTIVASE) IV ONE (12:00)
--- NOTE | 2020-08-06 12:00 | NUR ---
Call placed to and no answer. Placed call to son on file and roll to voicemail and message left of emergent implied consent to begin thromolytics for stroke symptoms after consultation with neurologist. Please return call for more info.
[2020-08-06] MEDS ORDERED: HOLD METFORMIN - RECEIVED CONTRAST 20 ML VIAL IV SCH (12:15)
[2020-08-06] MEDS ORDERED: IOHEXOL 350 MG/ML 100 ML (OMNIPAQUE 350) VIAL IV ONE (12:15)
[2020-08-06] MEDS ORDERED: NS 100 ML (IVPB) BAG IV ONE (12:15)
[2020-08-06] MEDS ORDERED: CATHETER FLUSH 10 ML SYR IV PRN (12:15)
[2020-08-06 14:10] VITALS: BP 158/89
--- NOTE | 2020-08-06 14:10 | NUR ---
Pt discharged from ER at this time as a transfer to [facility] per [facility] with no resolution of aphasia, continued to drool from right side of mouth. Moves all upper extremities well, turns head more left and right than arrival. Note continued wiggling of feet.
--- NOTE | 2020-08-06 15:00 | NUR ---
Pt son, Ab Cyr, returned call and was updated. Son states he did not take his phone with him today and was not even aware of pt's arrival to ED as he [facility] [place] Full update of presenting factors and the Implied Emergency Medical Consent utilized to treat promptly and appropriately for ischemic stroke sx. Pt rec'd thrombolytics and transferred to [facility] ICU. Phone number was provided.
--- NOTE | 2020-08-06 15:11 | Diagnostic Imaging Report ---
PROCEDURE: CT angiography of the head and CT angiography of the neck with and without contrast. TECHNIQUE: Contiguous noncontrast images were obtained from the skull base through the vertex. After intravenous contrast administration, helical CT angiography of the neck was performed. Source data was reformatted into 3D MIP projections. Delayed post contrast acquisition was also obtained. Auto Exposure Controls were utilized during the CT exam to meet ALARA standards for radiation dose reduction. INDICATION: Stroke. COMPARISON: Correlation is made with the prior head CT from earlier this same day. FINDINGS: The delayed post contrast images demonstrate ventriculomegaly. There is a moderate amount of motion artifact on the exam, compromising the study. No abnormal enhancing lesion is detected. The CT angiographic portion of the study demonstrates a large low-density mass along the inferior aspect of the right lobe of the thyroid gland measuring 3.0 x 2.6 cm. There is also enlargement and heterogeneity to the left lobe of the thyroid gland. There is a three-vessel branching pattern to the aortic arch. The left common carotid artery appears to be patent. The right common carotid artery appears to be patent. The overall quality of the study is somewhat compromised due to patient motion as well as suboptimal opacification of the arterial system. The carotid bifurcations are unremarkable. Both internal carotid arteries appear to be patent. There is some calcified plaque identified in the carotid siphons bilaterally. The M1 and M2 segments of the middle cerebral arteries appear to be widely patent. No large branch occlusion is identified. The right and left anterior cerebral arteries are patent. There is a patent posterior communicating artery on the right with origin of the right posterior cerebral artery. The left posterior cerebral artery is patent. No thromboemboli are detected. The basilar is small but patent. The vertebral arteries appear to be codominant and patent. IMPRESSION: 1. Thyromegaly with multiple bilateral thyroid masses. Dedicated thyroid ultrasound could be performed for better characterization on a nonemergent basis. 2. Patent bilateral common and internal carotid arteries. The intracranial vasculature appears to be widely patent. No thromboembolism or large branch occlusion is identified. Dictated by: Dictated on workstation # [id number]
== END 2020-08-06 14:10 | disposition short-term general hospital (02) ==
LOC: EDUNIT# 10:51 → ER FS 10:52
DX: I63.9 Cerebral infarction, unspecified (principal); R29.721 NIHSS score 21; Z88.2 Allergy status to sulfonamides; Z88.1 Allergy status to other antibiotic agents; Z85.828 Personal history of other malignant neoplasm of skin
CPT/HCPCS: 36415; 51702; 70450; 70496; 70498; 80053; 81000; 82962; 83735; 83880; 84443; 84484; 85025; 85610; 85730; 87088; 92977; 99291